=== PATIENT | female | born 1940 | race Caucasian/White ===

== ENCOUNTER 2016-08-21 22:04 | Emergency (ER) | payer OTHER ==
--- NOTE | 2016-08-21 23:07 | DIAGNOSTIC IMAGING REPORT ---
PROCEDURE: XR CHEST 1 VIEW INDICATION: SHORTNESS OF BREATH TECHNIQUE: Portable AP view (2225 hours). COMPARISON: Compared to chest x-ray and 03/22/2016. FINDINGS: Allowing for suboptimal inspiration and rotation, there are moderate to severe parenchymal changes in the mid and lower lungs. Moderate cardiomegaly with pulmonary vascular congestion. Thorax is unchanged. IMPRESSION: 1. Moderate to severe parenchymal changes in the mid and lower lungs compatible with pneumonia (e.g., aspiration, bacterial,). 2. Moderate cardiomegaly with mild pulmonary vascular congestion. Consider occult congestive heart failure.
--- NOTE | 2016-08-22 07:19 | ED ORDER SUMMARY ---
..... Patient: BARBRA ESCOBAR OrderSheet [facility] VisitID: [id number] [place] [address] 76y, F Registration Date/Time: 08/21/2016 ORDER SHEET Weight: 136.0 kg Allergies: Morphine and Related GENERAL ORDERS: Chest 1V Urgent (22:10 08/21/2016 Nara Hoffmann) (Ack 22:20 IJurca ER Tech1) (22:25 IJurca ER Tech1) CBC w Diff Urgent (22:11 08/21/2016 Nara Hoffmann) (Ack 22:20 IJurca ER Tech1) (22:24 MWinterer R.N.) CMP Urgent (22:11 08/21/2016 Nara Hoffmann) (Ack 22:20 IJurca ER Tech1) (22:24 MWinterer R.N.) UA-Culture if indicated Urgent (22:11 08/21/2016 Nara Hoffmann) (Ack 22:20 IJurca ER Tech1) (23:37 JRomanelli R.N.) BNP Urgent (22:11 08/21/2016 Nara Hoffmann) (Ack 22:20 IJurca ER Tech1) (22:24 MWinterer R.N.) D-Dimer Urgent (22:11 08/21/2016 Nara Hoffmann) (Ack 22:20 IJurca ER Tech1) (22:24 MWinterer R.N.) EKG - ER Stat (22:11 08/21/2016 Nara Hoffmann) (22:17 TBowen R.N.) Nolen Catheter (23:23 08/21/2016 Nara Hoffmann) (Ack 23:32 IJurca ER Tech1) (23:38 TBowen R.N.) ABG (G) Urgent (23:29 08/21/2016 Nara Hoffmann) (Ack 23:31 IJurca ER Tech1) (0:08 TBowen R.N.) Blood Culture (No) (N/A) Urgent (00:01 08/22/2016 Nara Hoffmann) (Ack 0:08 IJurca ER Tech1) (0:38 TBowen R.N.) Lactic Acid for Sepsis Protocol Urgent (00:01 08/22/2016 Nara Hoffmann) (Ack 0:08 IJurca ER Tech1) (0:39 TBowen R.N.) PCT (Procalcitonin) Urgent (00:01 08/22/2016 Nara Hoffmann) (Ack 0:08 IJurca ER Tech1) (0:39 TBowen R.N.) ABG (G) Urgent (03:01 08/22/2016 Nara Hoffmann) (Ack 3:03 IJurca ER Tech1) ABG (G) Urgent (07:11 08/22/2016 Nara Hoffmann) (Ack 7:28 YOLANDEoejoey) MEDICATION ORDERS: Prednisone PO 40 mg (NOW) (22:11 08/21/2016 Nara Hoffmann) (22:28 TBowen R.N.) NitroGLYCERIN Paste Topical 1 in. (NOW, to CW) (23:23 08/21/2016 Nara Hoffmann) (23:43 TBowen R.N.) Lovenox Subcut 150 mg (HIGH ALERT MEDICATION, NOW) (00:08 08/22/2016 Nara Hoffmann) (0:26 TBowen R.N.) IV FLUIDS: Lasix IV 40 mg (NOW) (23:23 08/21/2016 Nara Hoffmann) (0:06 TBowen R.N.) Levaquin IV 750 mg/150 mL (NOW) (00:04 08/22/2016 Nara Hoffmann) (1:09 TBowen R.N.) Ceftriaxone IV 1 gm/50mL (NOW) (00:04 08/22/2016 Nara Hoffmann) (0:37 TBowen R.N.) ORDER SHEET NOTES: [Electronically signed by Daniella Damon R.N. (09:04 08/22/2016)] [Electronically signed by Cj Cole Dr. (08:46 08/24/2016)] [Electronically locked/signed by Daniella Damon R.N. (09:04 08/22/2016)]
--- NOTE | 2016-08-22 07:19 | ED CLINICAL REPORT ---
Clinical Report - Physicians/Mid Levels [facility] [address] [place] [address] 08/21/2016 22:05 Patient: BARBRA ESCOBAR Time Seen: 22:10; initial patient contact. Arrived- By ambulance. Historian- patient and EMS personnel. HISTORY OF PRESENT ILLNESS Chief Complaint: DYSPNEA and HISTORY OF CHRONIC OBSTRUCTIVE PULMONARY DISEASE and CONGESTIVE HEART FAILURE. This started today and is still present. The dyspnea is described as moderate. The patient has had a cough, chest discomfort, wheezing, dyspnea on exertion and foot swelling. She has had orthopnea. No sputum production, fever, sweating episodes, chills or chest pain. No calf pain, anxiety or palpitations. Similar symptoms previously: Several times. Recent medical care: Not recently seen/assessed. REVIEW OF SYSTEMS No nausea, vomiting, abdominal pain, headache or skin rash. All systems otherwise negative, except as recorded above. PAST HISTORY Congestive heart failure. Emphysema. A fib. No history of pulmonary embolism. Medications: Metoprolol Tartrate Oral 25 mg. Atorvastatin Calcium Oral 40 mg, daily. Aspirin Oral. Allopurinol Oral 300 mg, daily. Furosemide Oral 40 mg, daily. Isosorbide Dinitrate Oral (Tablet 30 mg), bid. Levothyroxine Sodium Oral (Tablet 50 mcg), daily. Oxycodone-Acetaminophen Oral (Tablet 7.5-325 mg) 2 tablets, 2x a day. Pantoprazole Sodium Oral 40 mg, daily. Allergies: Morphine and Related. SOCIAL HISTORY Former smoker. No alcohol use or drug use. ADDITIONAL NOTES The nursing notes have been reviewed with agreement regarding the chief complaint, PMH and patient medications and allergies. PHYSICAL EXAM Appearance: Alert. Patient in mild distress. Eyes: Eyes normal inspection. ENT: Dry mucous membranes present. Neck: JVD present. CVS: Normal heart rate and rhythm. Heart sounds normal. Respiratory: Moderate respiratory distress with accessory muscle use and retractions. Mildly prolonged expirations. Moderately decreased air movement diffusely over both lungs. Wheezing present. Rhonchi present. Abdomen: Soft and nontender. No organomegaly. Skin: No rash. Extremities: Lower extremity edema. Neuro: Oriented X 3. No motor deficit. LABS, X-RAYS, AND EKG EKG: EKG time: (2218). Atrial fibrillation (ventricular rate 73). Normal QRS complex. Normal axis. Normal ST and T waves, QT and QTc. Prior EKG unavailable. The study has been interpreted contemporaneously by me. The study has been independently viewed by me. The EKG appears to be a good tracing. Interpretation time: 2219. Chest X-ray: (1. Moderate to severe parenchymal changes in the mid and lower lungs compatible with pneumonia (e.g., aspiration, bacterial,). 2. Moderate cardiomegaly with mild pulmonary vascular congestion. Consider occult congestive heart failure.). Views: AP. Technique: good. The X-rays were independently viewed by me, interpreted by the radiologist and discussed with the radiologist. A comparison with prior films reveals that the findings have worsened. Interpretation time: 23:31. Laboratory Tests: [id number]: (SAURAV: 08/22/2016 00:30) ( [facility] 08/22/2016 01:02) Final results Test Result Flag Units (Reference) LACTIC ACID SEPSIS PROTOCOL 1.0 mmol/L (0.4-2.0) [id number]: (SAURAV: 08/22/2016 00:01) ( [facility] 08/22/2016 00:36) Final results Test Result Flag Units (Reference) PROCALCITONIN <0.5 ng/mL (0-0.5) PCT Concentration: Interpretation : Risk/option for action PCT <=0.5 ng/mL : Systemic : Low risk forinfection(sepsis): progression to severeis not likely. : systemic infection.Local bacterial : CAUTION-PCT levelsinfection is : below 0.5 ng/mL do notpossible. : exclude an infection,because localizedinfections (withoutsystemic signs) may beassociated with suchlow levels. If PCT ismeasured very earlyafter a bacterialchallenge (usually <6hours), these valuesmay still be low. Inthis case PCT shouldbe re-assessed 6-24hours later. PCT >0.5 and : Systemic infection: Moderate risk for<= 2 ng/mL : (sepsis) is : progression to severepossible, but : systemic infection.other conditions : The patient should beare known to : closely monitoredelevate PCT. : both clinically andby re-assessing PCTwithin 6-24 hours. PCT > 2 ng/mL : Systemic infection: High risk for(sepsis) is likely: progression to severeunless other : systemic infection.causes are known. : PCT >= 10 ng/mL : Important systemic: High likelihood ofinflammatory : severe sepsis orresponse, almost : septic shock.exclusively due to:severe bacterial :sepsis or septic :shock. : ABG: (SAURAV: 08/22/2016 03:01) ( [facility] 08/22/2016 03:43) Final results Test Result Flag Units (Reference) FIO2 40 % (20-101) ABG MODE OF DELIVERY NC MODIFIED LINN TEST POSITIVE? NO LITERS PER MIN. 5 L/MIN (0-20) ARTERIAL BLOOD GAS SITE LR ARTERIAL BLOOD GAS pH 7.21 *L (7.35-7.45) ABG PCO2 114.0 *H mmHg (35-45) ABG PO2 71.4 mmHg (60.0-80.0) ABG BASE EXCESS 15.1 *H mmol/L (-6.0--6.0) ABG HCO3 45.2 *H mmol/L (20.0-26.0) ABG TCO2 48.7 *H mmol/L (24.0-30.0) ABG XrKlA1j 88.3 H mmHg (7.0-14.0) *NOTE: Normal rangeis based on aFIO2 of 21% ABG SAT O2 93.2 L % (95.1-100.0) ABG TOTAL HEMOGLOBIN 12.3 g/dL (12.0-16.0) ABG O2 HEMOGLOBIN 90.7 L % (95.0-100.0) ABG CARBOXYHEMOGLOBIN 2.8 H % (0.5-1.5) ABG METHEMOGLOBIN -0.1 L % (0.4-1.5) ABG RHEMOGLOBIN 6.6 % COMMENTS 5LNC UA-Culture if indicated: (SAURAV: 08/21/2016 23:30) ( MsgRcvd 08/21/2016 23:56) Final results Test Result Flag Units (Reference) URINE COLOR YELLOW URINE APPEARANCE CLEAR URINE GLUCOSE NEGATIVE (NEGATIVE) URINE BILIRUBIN NEGATIVE (NEGATIVE) URINE KETONE NEGATIVE (NEGATIVE) URINE SPECIFIC GRAVITY 1.020 (1.010-1.030) URINE PH 6.0 (5.0-8.0) URINE PROTEIN TRACE (NEGATIVE) URINE UROBILINOGEN 1.0 EU/dL (0.2-1.0) URINE NITRITE POSITIVE (NEGATIVE) URINE BLOOD TRACE-INTACT (NEGATIVE) URINE LEUK ESTERASE TRACE (NEGATIVE) URINE RBC 0-1 rbc/hpf (0-1) URINE WBC 3-5 wbc/hpf (0-1) URINE EPITHELIAL CELLS 0-1 EPI/hpf (0-5) URINE BACTERIA MODERATE (2+ TO 3+) (NONE SEEN) URINE COMMENT CULTURE INDICATED URINE CULTURES ARE SET-UP BASED ON THE FOLLOWING CRITERIA:POSITIVE NITRITEPOSITIVE LEUKOCYTE ESTERASEGREATER THAN 10 WHITE BLOOD CELLSMODERATE (2+) OR GREATER BACTERIA CBC w Diff: (SAURAV: 08/21/2016 22:20) ( [facility] 08/21/2016 22:33) Final results Test Result Flag Units (Reference) WHITE BLOOD COUNT 10.1 K/uL (4.5-11.5) RED BLOOD COUNT 4.52 M/uL (4.00-5.20) HEMOGLOBIN 12.4 gm/dL (12.0-16.0) HEMATOCRIT 40.7 % (36.0-46.0) MEAN CELL VOLUME 90 fL (80-100) MEAN CORPUSCULAR HGB 27 pg (26-34) MEAN CORPUSCULAR HGB CONC 30 L g/dL (31-37) RED CELL DISTRIBUTION WIDTH 18.3 H % (11.6-14.8) PLATELET COUNT 190 K/uL (150-400) NEUTROPHIL % 79.0 H % (50-75) LYMPH % 14.7 L % (25-40) MONO % 5.5 % (3-14) EOSINOPHIL % 0.5 % (0-4) BASOPHIL % 0.3 % (0-2) [id number]: (SAURAV: 08/21/2016 22:20) ( [facility] 08/21/2016 22:46) Final results Test Result Flag Units (Reference) D-DIMER QUANTITATIVE 1.85 H ug/mLFEU (0.27-0.52) The primary value of this quantitative assay relates toits negative predictive value (i.e. exclusion) of pulmonaryembolism/deep vein thrombosis/DIC.Elevated levels of d-dimer may also occur with:, age, cancer, inflammation, liver disease,post-op, infection, hematoma, coronary disease, peripheralarteriopathy, bleeding disorders and thrombolytic treatment.Results should be correlated with other clinical andradiological data.Testing Methodology: Latex Immunoassay BNP: (SAURAV: 08/21/2016 22:20) ( [facility] 08/21/2016 22:59) Final results Test Result Flag Units (Reference) B-TYPE NATRIURETIC PEPTIDE 502 H pg/ml (5-100) CMP: (SAURAV: 08/21/2016 22:20) ( MsgRcvd 08/21/2016 22:59) Final results Test Result Flag Units (Reference) GLUCOSE 119 H mg/dL (70-110) BUN 30 H mg/dL (7-18) CREATININE 1.4 H mg/dL (0.6-1.3) Estimated GFR 38.86 mL/min Estimated GFR- 47.10 mL/min Note: Persistent reduction over 3 months in eGFR<60 mL/min/1.73 m2 defines CKD. Patients with eGFR values>=60 mL/min/1.73 m2 may also have CKD if evidence ofpersistent proteinuria. Additional information may be foundat www.kidney.org. SODIUM 145 mmol/L (136-145) POTASSIUM 4.3 mmol/L (3.5-5.1) CHLORIDE 102 mmol/L (98-107) CARBON DIOXIDE 45 *H mmol/L (21-32) CALCIUM 8.4 L mg/dL (8.5-10.1) TOTAL PROTEIN 7.3 g/dL (6.4-8.2) ALBUMIN 3.2 L g/dL (3.3-5.0) BILIRUBIN, TOTAL 1.1 H mg/dL (0.0-1.0) ALKALINE PHOSPHATASE 101 U/L (46-116) AST (SGOT) 22 U/L (15-37) ALT (SGPT) 26 U/L (12-78) ABG: (SAURAV: 08/21/2016 23:29) ( MsgRcvd 08/21/2016 23:52) Final results Test Result Flag Units (Reference) FIO2 40 % (20-101) ABG MODE OF DELIVERY NC MODIFIED LINN TEST POSITIVE? NO LITERS PER MIN. 5 L/MIN (0-20) ARTERIAL BLOOD GAS SITE LR ARTERIAL BLOOD GAS pH 7.24 *L (7.35-7.45) ABG PCO2 106.0 *H mmHg (35-45) ABG PO2 64.0 mmHg (60.0-80.0) ABG BASE EXCESS 15.2 *H mmol/L (-6.0--6.0) ABG HCO3 44.9 *H mmol/L (20.0-26.0) ABG TCO2 48.2 *H mmol/L (24.0-30.0) ABG WzGfV4j 104.7 H mmHg (7.0-14.0) *NOTE: Normal rangeis based on aFIO2 of 21% ABG SAT O2 89.9 L % (95.1-100.0) ABG TOTAL HEMOGLOBIN 12.4 g/dL (12.0-16.0) ABG O2 HEMOGLOBIN 87.7 L % (95.0-100.0) ABG CARBOXYHEMOGLOBIN 2.7 H % (0.5-1.5) ABG METHEMOGLOBIN -0.2 L % (0.4-1.5) ABG RHEMOGLOBIN 9.8 % COMMENTS 4LNC . PROGRESS AND PROCEDURES PROCEDURES (ABG L radial artery). Critical care performed (120 minutes). Time includes: direct patient care, patient reassessment, coordination of patient care, interpretation of data (laboratory data, pulse oximetry, arterial blood gases and chest xrays), review of patient's medical records, medical consultation, family consultation regarding treatment decisions and documentation of patient care. The patient required critical care due to the acute impairment of vital organ systems (respiratory) and a high probability of life threatening deterioration. Multiple emergent interventions were required to prevent life threatening deterioration. Discussed case with on-call health care provider, (call returned 03:16 Dr. Brewer Change Room Attendant at [facility] and recommended ER to ER transfer and will dispo her there. Spoke w/ ED MD, due to pCO2 being so high, she needs an ICU bed and they now no longer have one available.). Reviewed test results and need for additional work-up. Health care provider will see patient in ED. Discussed case with on-call health care provider, (call returned 04:45 Dr. Hendricks Change Room Attendant at [facility]. Due to ABG he would not accept pt unless she was intubated for transfer as immenent deterioration would likely occur..). Reviewed test results and need for additional work-up. Consult obtained from [employer] sales consultant. call returned 07:41 Dr. Barnes. Will accept pt. Disposition: Benefits, risks and alternatives to transfer explained to patient and family. Transferred to [facility]. CLINICAL IMPRESSION Bacterial and lobar pneumonia with hypoxemia. Empiric antibiotics given in the ED. Acute congestive heart failure. Acute exacerbation of COPD. Acute urinary tract infection with cystitis. Hypoxia. (Electronically signed by Cj Cole Dr. 08/24/2016 8:46) Addenda for BARBRA ESCOBAR VisitID: [id number] Date: 08/21/2016 08/23/2016 14:42 preliminary result received for urine positive for gram negative rods. Reviewed by Ton Salazar PA-C. Results called to RENETTA Drummond at [facility] radha ([address] [place] [address], critical care). Results also faxed to unit (Electronically signed by Brock Shin R.N. - 08/23/2016 14:42)
--- NOTE | 2016-08-22 07:19 | ED NURSING NOTES ---
Clinical Report - Nurses [facility] [address] [place] [address] 08/21/2016 22:05 Patient: BARBRA ESCOBAR TRIAGE Triage time 22:13. Acuity: LEVEL 3. Chief Complaint: SHORTNESS OF BREATH. Alert. No acute distress. --22:16 TonjaysonB, R.N. 22:13 08/21/16. BP: 117/77. HR: 66. RR: 20. O2 saturation: 98%. Temp: 98.9 F. Pain level now: 0/10. --22:16 TonjaysonB, R.N. Weight: 136 kg. Height/Length: 68 inches. BMI: 45.6. --22:16 TonyaB, R.N. Medications Allopurinol Oral 300 mg, daily. Furosemide Oral 40 mg, daily. Isosorbide Dinitrate Oral (Tablet 30 mg), bid. Levothyroxine Sodium Oral (Tablet 50 mcg), daily. Oxycodone-Acetaminophen Oral (Tablet 7.5-325 mg) 2 tablets, 2x a day. Pantoprazole Sodium Oral 40 mg, daily. --22:34 TonjaysonB, R.N. Aspirin Oral. --22:35 TonyaB, R.N. Atorvastatin Calcium Oral 40 mg, daily. --22:35 TonjaysonB, R.N. Metoprolol Tartrate Oral 25 mg. --22:36 TonjaysonB, R.N. Allergies Morphine and Related. --22:14 TonjaysonB, R.N. History Arrived by EMS. Historian: patient and family. Accompanied by family. This started today. She has had a cough and chest pain. Treatment PIN SORTER AND BAGGER: Took breathing treatment x1. (zofran). See EMS report. PAST MEDICAL HX: Hypertension. Congestive heart failure. Chronic obstructive pulmonary disease. Immunizations: up-to-date. SOCIAL HX: Former smoker. No alcohol use or drug use. No infectious disease exposure. FALL RISK ASSESSMENT: Fall risk assessment completed. No fall risk identified. NUTRITIONAL RISK ASSESSMENT: The nutritional risk assessment revealed no deficiencies. FUNCTIONAL ASSESSMENT: Functional assessment: no impairments noted. LEARNING NEEDS ASSESSMENT: The learning needs assessment revealed no barriers. SKIN INTEGRITY ASSESSMENT: Skin integrity risk assessment completed. No skin integrity risk identified. --22:16 Quinten Mcfarland Interventions ID band on patient. To treatment room. --22:16 Quinten Mcfarland PHYSICAL ASSESSMENT To room via stretcher. GENERAL / NEURO / PSYCH: Alert. Oriented X 4. Appears in no acute distress. RESPIRATORY: No respiratory distress. Respirations not labored. Chest nontender. CVS: Normal sinus rhythm noted. Capillary refill less than 2 seconds. GI / : Abdomen soft and nontender. Bowel sounds within normal limits. SKIN: Skin is warm and dry. Normal skin turgor. --22:17 Quinten Mcfarland NURSING PROGRESS NOTES Oxygen administered. Monitoring of patient in place. Patient gowned. Head of bed elevated. Two patient identifiers checked. Call light placed in reach. Side rails up x 2. Bed placed in lowest position. Brakes of bed on. --22:19 Quinten Mcfarland EKG time: (2218). EKG was ordered, performed by a tech and shown to the ED physician. --22:21 Louis Welsh, VALERIA Tech1 22:23 08/21/16. Checked patient name and birthdate: patient confirmed. Blood samples drawn from the right antecubital space with butterfly by nurse per protocol ; labeled in presence of the patient and sent to lab: rainbow set. --22:23 Hannah Vaughn R.N. 22:28 08/21/2016 Prednisone PO 40 mg given. Allergies verified and confirmed 5 rights. --22:28 Quinten Mcfarland 23:40 08/21/2016 Site #1 started prior to arrival by EMS via IV in the left antecubital space with an 20g angiocath. --00:06 Quinten Mcfarland 23:43 08/21/2016 NITROGLYCERIN PASTE Topical 1 inch. Applied to the left chest. Allergies verified and confirmed 5 rights. --23:43 Quinten Mcfarland 00:06 08/22/2016 Lasix IVP 40 mg given over 3 minute(s) via site #1. Allergies verified and confirmed 5 rights. IV patency established. IV site checked: no pain, redness, or swelling. IV flushed thoroughly pre- and post-medication administration. IVP given by physician. --00:06 Quinten Mcfarland 14 fr franklin catheter placed. Reason for indwelling catheter: critical need to monitor intake and output. During procedure hand hygiene observed and sterile equipment and aseptic technique used. Return of 100 mL yellow-colored urine, sediment noted; attached to bedside drainage bag positioned below the bladder and secured with stabilization device. It was a complicated placement. She tolerated procedure well. --00:08 Bonny McfarlandNMarga 00:26 08/22/2016 Lovenox (Enoxaparin Sodium) Subcutaneous 150 mg given. Given in the right abdomen. Allergies verified and confirmed 5 rights. --00:26 Quinten Mcfarland 00:37 08/22/2016 Started 1 gm of Ceftriaxone IVPB in bag #1 100 mL; at 1 gm/hr over 30 minute(s) via site #1 via IV pump. Allergies verified and confirmed 5 rights. IV patency established. IV site checked: no pain, redness, or swelling. IV flushed thoroughly pre- and post-medication administration. --00:37 Quinten Mcfarland 01:07 08/22/2016 Ceftriaxone IVPB Discontinued: bag #1 completed. Total amount infused: 100 mL. IV patency established. IV site checked: no pain, redness, or swelling. IV flushed thoroughly. --01:07 Quinten Mcfarland 01:08 08/22/2016 Started 750 mg of Levaquin (Levofloxacin) IVPB; at 750 mg/hr over 1.5 hour(s) via site #1 via IV pump. Allergies verified and confirmed 5 rights. IV patency established. IV site checked: no pain, redness, or swelling. IV flushed thoroughly pre- and post-medication administration. --01:09 Quinten Mcfarland The patient is sleeping. --02:11 Quinten Mcfarland 02:10 08/22/16. BP: 143/52. HR: 67. RR: 20. O2 saturation: 91%. Temp: 98.4 F. Pain level now 0/10. --02:11 Quinten Mcfarland 02:34 08/22/2016 Levaquin IVPB Discontinued: bag #1 completed. Total amount infused: 150 mL. IV patency established. IV site checked: no pain, redness, or swelling. IV flushed thoroughly. --02:34 Quinten Mcfarland The patient is sleeping. Call light placed in reach. Side rails up x 2. Bed placed in lowest position. Brakes of bed on. --04:04 Quinten Mcfarland 04:03 08/22/16. BP: 131/58. HR: 88. RR: 18. O2 saturation: 91%. Temp: deferred. Pain level now: 0/10. --04:04 Quinten Mcfarland The patient is sleeping. --06:13 Quinten Mcfarland 06:13 08/22/16. BP: 116/62. HR: 72. RR: 22. O2 saturation: 94%. Temp: deferred. Pain level now: 0/10. --06:13 Quinten Mcfarland 07:21 08/22/16. ( Patient report received from Shana. So in law is at the bedside. Patient is sleeping. Bi-pap is in place. Will cont to monitor.). --07:21 Daniella Damon R.N. 07:00 08/22/16. BP: 119/67. HR: 71. RR: 20. O2 saturation: 91% on face mask. O2 started at 10 liters/minute. Additional comments: bi-pap. --07:26 Daniella Damon R.N. 07:35 08/22/16. ( Patient boosted up in bed using chucks and 2 nurses. RT drawing ABG. Pt's son in law is still at bedside. Will cont to monitor.). --07:37 Daniella Damon R.N. ( face sheet faxed to Prov. Images pushed to Prov.). --07:56 Betsey Martin ER Tech1 08:00 08/22/16. BP: 142/106. HR: 68. RR: 14. O2 saturation: 95%. O2 started via face mask. Additional comments: Bi-pap. --08:21 Daniella Damon R.N. 08:30 08/22/16. ( Report called to RENETTA Smith at [facility] ICU). --08:30 Daniella Damon R.N. 08:36 08/22/16. ( Family and patient updates on POC and transport ETA.). --08:36 Daniella Damon R.N. 09:00 08/22/16. Care transferred and report given. ( Colin With [facility]). --09:00 Daniella Damon R.N. Intake & Output Urine: 07:53, with return of 550 mL yellow-colored clear urine; odor is normal; attached to bedside drainage bag. --07:53 Daniella Damon R.N. DISPOSITION / DISCHARGE 08:53 08/22/2016 Site #[address] upon transfer; patent, no pain and no signs of infection. --09:03 Daniella Damon R.N. late entry - 08:50. Transferred to [facility]. Summary of care provided to transport team, EMS, family and transfer facility. Transported via ambulance by nurse with monitor, IV and O2. ( on Bi-pap). Patient has no belongings. --09:04 Danilela Damon R.N. 08:00 08/22/16. BP: 142/106. HR: 68. RR: 14. O2 saturation: 95%. O2 started via face mask. Additional comments: Bi-pap. --09:04 Daniella Damon R.N. Locked/Released at 08/22/2016 9:04 by Daniella Damon R.N.
--- NOTE | 2016-08-22 07:19 | ED ORDER SUMMARY ---
..... Patient: BARBRA ESCOBAR OrderSheet [facility] VisitID: [id number] [place] [address] 76y, F Registration Date/Time: 08/21/2016 ORDER SHEET Weight: 136.0 kg Allergies: Morphine and Related GENERAL ORDERS: Chest 1V Urgent (22:10 08/21/2016 Nara Hoffmann) (Ack 22:20 IJurca ER Tech1) (22:25 IJurca ER Tech1) CBC w Diff Urgent (22:11 08/21/2016 Nara Hoffmann) (Ack 22:20 IJurca ER Tech1) (22:24 MWinterer R.N.) CMP Urgent (22:11 08/21/2016 Nara Hoffmann) (Ack 22:20 IJurca ER Tech1) (22:24 MWinterer R.N.) UA-Culture if indicated Urgent (22:11 08/21/2016 Nara Hoffmann) (Ack 22:20 IJurca ER Tech1) (23:37 JRomanelli R.N.) BNP Urgent (22:11 08/21/2016 Nara Hoffmann) (Ack 22:20 IJurca ER Tech1) (22:24 MWinterer R.N.) D-Dimer Urgent (22:11 08/21/2016 Nara Hoffmann) (Ack 22:20 IJurca ER Tech1) (22:24 MWinterer R.N.) EKG - ER Stat (22:11 08/21/2016 Nara Hoffmann) (22:17 TBowen R.N.) Nolen Catheter (23:23 08/21/2016 Nara Hoffmann) (Ack 23:32 IJurca ER Tech1) (23:38 TBowen R.N.) ABG (G) Urgent (23:29 08/21/2016 Nara Hoffmann) (Ack 23:31 IJurca ER Tech1) (0:08 TBowen R.N.) Blood Culture (No) (N/A) Urgent (00:01 08/22/2016 Nara Hoffmann) (Ack 0:08 IJurca ER Tech1) (0:38 TBowen R.N.) Lactic Acid for Sepsis Protocol Urgent (00:01 08/22/2016 Nara Hoffmann) (Ack 0:08 IJurca ER Tech1) (0:39 TBowen R.N.) PCT (Procalcitonin) Urgent (00:01 08/22/2016 Nara Hoffmann) (Ack 0:08 IJurca ER Tech1) (0:39 TBowen R.N.) ABG (G) Urgent (03:01 08/22/2016 Nara Hoffmann) (Ack 3:03 IJurca ER Tech1) ABG (G) Urgent (07:11 08/22/2016 Nara Hoffmann) (Ack 7:28 YOLANDEoejoey) MEDICATION ORDERS: Prednisone PO 40 mg (NOW) (22:11 08/21/2016 Nraa Hoffmann) (22:28 TBowen R.N.) NitroGLYCERIN Paste Topical 1 in. (NOW, to CW) (23:23 08/21/2016 Nara Hoffmann) (23:43 TBowen R.N.) Lovenox Subcut 150 mg (HIGH ALERT MEDICATION, NOW) (00:08 08/22/2016 Nara Hoffmann) (0:26 TBowen R.N.) IV FLUIDS: Lasix IV 40 mg (NOW) (23:23 08/21/2016 Nara Hoffmann) (0:06 TBowen R.N.) Levaquin IV 750 mg/150 mL (NOW) (00:04 08/22/2016 Nara Hoffmann) (1:09 TBowen R.N.) Ceftriaxone IV 1 gm/50mL (NOW) (00:04 08/22/2016 Nara Hoffmann) (0:37 TBowen R.N.) ORDER SHEET NOTES: [Electronically signed by Daniella Damon R.N. (09:04 08/22/2016)] [Electronically signed by Cj Cole Dr. (08:46 08/24/2016)] [Electronically locked/signed by Daniella Damon R.N. (09:04 08/22/2016)]
--- NOTE | 2016-08-22 07:19 | ED CLINICAL REPORT ---
Clinical Report - Physicians/Mid Levels [address] [place] [address] 08/21/2016 22:05 Patient: BARBRA ESCOBAR Time Seen: 22:10; initial patient contact. Arrived- By ambulance. Historian- patient and EMS personnel. HISTORY OF PRESENT ILLNESS Chief Complaint: DYSPNEA and HISTORY OF CHRONIC OBSTRUCTIVE PULMONARY DISEASE and CONGESTIVE HEART FAILURE. This started today and is still present. The dyspnea is described as moderate. The patient has had a cough, chest discomfort, wheezing, dyspnea on exertion and foot swelling. She has had orthopnea. No sputum production, fever, sweating episodes, chills or chest pain. No calf pain, anxiety or palpitations. Similar symptoms previously: Several times. Recent medical care: Not recently seen/assessed. REVIEW OF SYSTEMS No nausea, vomiting, abdominal pain, headache or skin rash. All systems otherwise negative, except as recorded above. PAST HISTORY Congestive heart failure. Emphysema. A fib. No history of pulmonary embolism. Medications: Metoprolol Tartrate Oral 25 mg. Atorvastatin Calcium Oral 40 mg, daily. Aspirin Oral. Allopurinol Oral 300 mg, daily. Furosemide Oral 40 mg, daily. Isosorbide Dinitrate Oral (Tablet 30 mg), bid. Levothyroxine Sodium Oral (Tablet 50 mcg), daily. Oxycodone-Acetaminophen Oral (Tablet 7.5-325 mg) 2 tablets, 2x a day. Pantoprazole Sodium Oral 40 mg, daily. Allergies: Morphine and Related. SOCIAL HISTORY Former smoker. No alcohol use or drug use. ADDITIONAL NOTES The nursing notes have been reviewed with agreement regarding the chief complaint, PMH and patient medications and allergies. PHYSICAL EXAM Appearance: Alert. Patient in mild distress. Eyes: Eyes normal inspection. ENT: Dry mucous membranes present. Neck: JVD present. CVS: Normal heart rate and rhythm. Heart sounds normal. Respiratory: Moderate respiratory distress with accessory muscle use and retractions. Mildly prolonged expirations. Moderately decreased air movement diffusely over both lungs. Wheezing present. Rhonchi present. Abdomen: Soft and nontender. No organomegaly. Skin: No rash. Extremities: Lower extremity edema. Neuro: Oriented X 3. No motor deficit. LABS, X-RAYS, AND EKG EKG: EKG time: (2218). Atrial fibrillation (ventricular rate 73). Normal QRS complex. Normal axis. Normal ST and T waves, QT and QTc. Prior EKG unavailable. The study has been interpreted contemporaneously by me. The study has been independently viewed by me. The EKG appears to be a good tracing. Interpretation time: 2219. Chest X-ray: (1. Moderate to severe parenchymal changes in the mid and lower lungs compatible with pneumonia (e.g., aspiration, bacterial,). 2. Moderate cardiomegaly with mild pulmonary vascular congestion. Consider occult congestive heart failure.). Views: AP. Technique: good. The X-rays were independently viewed by me, interpreted by the radiologist and discussed with the radiologist. A comparison with prior films reveals that the findings have worsened. Interpretation time: 23:31. Laboratory Tests: [id number]: (SAURAV: 08/22/2016 00:30) ( [facility] 08/22/2016 01:02) Final results Test Result Flag Units (Reference) LACTIC ACID SEPSIS PROTOCOL 1.0 mmol/L (0.4-2.0) [id number]: (SAURAV: 08/22/2016 00:01) ( [facility] 08/22/2016 00:36) Final results Test Result Flag Units (Reference) PROCALCITONIN <0.5 ng/mL (0-0.5) PCT Concentration: Interpretation : Risk/option for action PCT <=0.5 ng/mL : Systemic : Low risk forinfection(sepsis): progression to severeis not likely. : systemic infection.Local bacterial : CAUTION-PCT levelsinfection is : below 0.5 ng/mL do notpossible. : exclude an infection,because localizedinfections (withoutsystemic signs) may beassociated with suchlow levels. If PCT ismeasured very earlyafter a bacterialchallenge (usually <6hours), these valuesmay still be low. Inthis case PCT shouldbe re-assessed 6-24hours later. PCT >0.5 and : Systemic infection: Moderate risk for<= 2 ng/mL : (sepsis) is : progression to severepossible, but : systemic infection.other conditions : The patient should beare known to : closely monitoredelevate PCT. : both clinically andby re-assessing PCTwithin 6-24 hours. PCT > 2 ng/mL : Systemic infection: High risk for(sepsis) is likely: progression to severeunless other : systemic infection.causes are known. : PCT >= 10 ng/mL : Important systemic: High likelihood ofinflammatory : severe sepsis orresponse, almost : septic shock.exclusively due to:severe bacterial :sepsis or septic :shock. : ABG: (SAURAV: 08/22/2016 03:01) ( MsgRcvd 08/22/2016 03:43) Final results Test Result Flag Units (Reference) FIO2 40 % (20-101) ABG MODE OF DELIVERY NC MODIFIED LINN TEST POSITIVE? NO LITERS PER MIN. 5 L/MIN (0-20) ARTERIAL BLOOD GAS SITE LR ARTERIAL BLOOD GAS pH 7.21 *L (7.35-7.45) ABG PCO2 114.0 *H mmHg (35-45) ABG PO2 71.4 mmHg (60.0-80.0) ABG BASE EXCESS 15.1 *H mmol/L (-6.0--6.0) ABG HCO3 45.2 *H mmol/L (20.0-26.0) ABG TCO2 48.7 *H mmol/L (24.0-30.0) ABG BrWvQ7d 88.3 H mmHg (7.0-14.0) *NOTE: Normal rangeis based on aFIO2 of 21% ABG SAT O2 93.2 L % (95.1-100.0) ABG TOTAL HEMOGLOBIN 12.3 g/dL (12.0-16.0) ABG O2 HEMOGLOBIN 90.7 L % (95.0-100.0) ABG CARBOXYHEMOGLOBIN 2.8 H % (0.5-1.5) ABG METHEMOGLOBIN -0.1 L % (0.4-1.5) ABG RHEMOGLOBIN 6.6 % COMMENTS 5LNC UA-Culture if indicated: (SAURAV: 08/21/2016 23:30) ( MsgRcvd 08/21/2016 23:56) Final results Test Result Flag Units (Reference) URINE COLOR YELLOW URINE APPEARANCE CLEAR URINE GLUCOSE NEGATIVE (NEGATIVE) URINE BILIRUBIN NEGATIVE (NEGATIVE) URINE KETONE NEGATIVE (NEGATIVE) URINE SPECIFIC GRAVITY 1.020 (1.010-1.030) URINE PH 6.0 (5.0-8.0) URINE PROTEIN TRACE (NEGATIVE) URINE UROBILINOGEN 1.0 EU/dL (0.2-1.0) URINE NITRITE POSITIVE (NEGATIVE) URINE BLOOD TRACE-INTACT (NEGATIVE) URINE LEUK ESTERASE TRACE (NEGATIVE) URINE RBC 0-1 rbc/hpf (0-1) URINE WBC 3-5 wbc/hpf (0-1) URINE EPITHELIAL CELLS 0-1 EPI/hpf (0-5) URINE BACTERIA MODERATE (2+ TO 3+) (NONE SEEN) URINE COMMENT CULTURE INDICATED URINE CULTURES ARE SET-UP BASED ON THE FOLLOWING CRITERIA:POSITIVE NITRITEPOSITIVE LEUKOCYTE ESTERASEGREATER THAN 10 WHITE BLOOD CELLSMODERATE (2+) OR GREATER BACTERIA CBC w Diff: (SAURAV: 08/21/2016 22:20) ( [facility] 08/21/2016 22:33) Final results Test Result Flag Units (Reference) WHITE BLOOD COUNT 10.1 K/uL (4.5-11.5) RED BLOOD COUNT 4.52 M/uL (4.00-5.20) HEMOGLOBIN 12.4 gm/dL (12.0-16.0) HEMATOCRIT 40.7 % (36.0-46.0) MEAN CELL VOLUME 90 fL (80-100) MEAN CORPUSCULAR HGB 27 pg (26-34) MEAN CORPUSCULAR HGB CONC 30 L g/dL (31-37) RED CELL DISTRIBUTION WIDTH 18.3 H % (11.6-14.8) PLATELET COUNT 190 K/uL (150-400) NEUTROPHIL % 79.0 H % (50-75) LYMPH % 14.7 L % (25-40) MONO % 5.5 % (3-14) EOSINOPHIL % 0.5 % (0-4) BASOPHIL % 0.3 % (0-2) [id number]: (SAURAV: 08/21/2016 22:20) ( [facility] 08/21/2016 22:46) Final results Test Result Flag Units (Reference) D-DIMER QUANTITATIVE 1.85 H ug/mLFEU (0.27-0.52) The primary value of this quantitative assay relates toits negative predictive value (i.e. exclusion) of pulmonaryembolism/deep vein thrombosis/DIC.Elevated levels of d-dimer may also occur with:, age, cancer, inflammation, liver disease,post-op, infection, hematoma, coronary disease, peripheralarteriopathy, bleeding disorders and thrombolytic treatment.Results should be correlated with other clinical andradiological data.Testing Methodology: Latex Immunoassay BNP: (SAURAV: 08/21/2016 22:20) ( [facility] 08/21/2016 22:59) Final results Test Result Flag Units (Reference) B-TYPE NATRIURETIC PEPTIDE 502 H pg/ml (5-100) CMP: (SAURAV: 08/21/2016 22:20) ( MsgRcvd 08/21/2016 22:59) Final results Test Result Flag Units (Reference) GLUCOSE 119 H mg/dL (70-110) BUN 30 H mg/dL (7-18) CREATININE 1.4 H mg/dL (0.6-1.3) Estimated GFR 38.86 mL/min Estimated GFR- 47.10 mL/min Note: Persistent reduction over 3 months in eGFR<60 mL/min/1.73 m2 defines CKD. Patients with eGFR values>=60 mL/min/1.73 m2 may also have CKD if evidence ofpersistent proteinuria. Additional information may be foundat www.kidney.org. SODIUM 145 mmol/L (136-145) POTASSIUM 4.3 mmol/L (3.5-5.1) CHLORIDE 102 mmol/L (98-107) CARBON DIOXIDE 45 *H mmol/L (21-32) CALCIUM 8.4 L mg/dL (8.5-10.1) TOTAL PROTEIN 7.3 g/dL (6.4-8.2) ALBUMIN 3.2 L g/dL (3.3-5.0) BILIRUBIN, TOTAL 1.1 H mg/dL (0.0-1.0) ALKALINE PHOSPHATASE 101 U/L (46-116) AST (SGOT) 22 U/L (15-37) ALT (SGPT) 26 U/L (12-78) ABG: (SAURAV: 08/21/2016 23:29) ( MsgRcvd 08/21/2016 23:52) Final results Test Result Flag Units (Reference) FIO2 40 % (20-101) ABG MODE OF DELIVERY NC MODIFIED LINN TEST POSITIVE? NO LITERS PER MIN. 5 L/MIN (0-20) ARTERIAL BLOOD GAS SITE LR ARTERIAL BLOOD GAS pH 7.24 *L (7.35-7.45) ABG PCO2 106.0 *H mmHg (35-45) ABG PO2 64.0 mmHg (60.0-80.0) ABG BASE EXCESS 15.2 *H mmol/L (-6.0--6.0) ABG HCO3 44.9 *H mmol/L (20.0-26.0) ABG TCO2 48.2 *H mmol/L (24.0-30.0) ABG EzCvY7f 104.7 H mmHg (7.0-14.0) *NOTE: Normal rangeis based on aFIO2 of 21% ABG SAT O2 89.9 L % (95.1-100.0) ABG TOTAL HEMOGLOBIN 12.4 g/dL (12.0-16.0) ABG O2 HEMOGLOBIN 87.7 L % (95.0-100.0) ABG CARBOXYHEMOGLOBIN 2.7 H % (0.5-1.5) ABG METHEMOGLOBIN -0.2 L % (0.4-1.5) ABG RHEMOGLOBIN 9.8 % COMMENTS 4LNC . PROGRESS AND PROCEDURES PROCEDURES (ABG L radial artery). Critical care performed (120 minutes). Time includes: direct patient care, patient reassessment, coordination of patient care, interpretation of data (laboratory data, pulse oximetry, arterial blood gases and chest xrays), review of patient's medical records, medical consultation, family consultation regarding treatment decisions and documentation of patient care. The patient required critical care due to the acute impairment of vital organ systems (respiratory) and a high probability of life threatening deterioration. Multiple emergent interventions were required to prevent life threatening deterioration. Discussed case with on-call health care provider, (call returned 03:16 Dr. Brewer Sports Management Intern at [facility] and recommended ER to ER transfer and will dispo her there. Spoke w/ ED MD, due to pCO2 being so high, she needs an ICU bed and they now no longer have one available.). Reviewed test results and need for additional work-up. Health care provider will see patient in ED. Discussed case with on-call health care provider, (call returned 04:45 Dr. Hendricks Sports Management Intern at [facility]. Due to ABG he would not accept pt unless she was intubated for transfer as immenent deterioration would likely occur..). Reviewed test results and need for additional work-up. Consult obtained from tray room worker. call returned 07:41 Dr. Barnes. Will accept pt. Disposition: Benefits, risks and alternatives to transfer explained to patient and family. Transferred to [facility]. CLINICAL IMPRESSION Bacterial and lobar pneumonia with hypoxemia. Empiric antibiotics given in the ED. Acute congestive heart failure. Acute exacerbation of COPD. Acute urinary tract infection with cystitis. Hypoxia. (Electronically signed by Cj Cole Dr. 08/24/2016 8:46) Addenda for BARBRA ESCOBAR VisitID: [id number] Date: 08/21/2016 08/23/2016 14:42 preliminary result received for urine positive for gram negative rods. Reviewed by Ton Salazar PA-C. Results called to RENETTA Drummond at [facility] radha ([address] [place] [address], critical care). Results also faxed to unit (Electronically signed by Brock Shin R.N. - 08/23/2016 14:42)
--- NOTE | 2016-08-24 08:46 | ED MAR SUMMARY ---
..... Medication Administration Record [facility] [address] [place] [address] Patient: BARBRA ESCOBAR Visit ID: [id number] 76y, F Weight: 136.0 kg Height/Length: 68 in BMI: 45.6 ALLERGIES: Morphine and Related Given 22:28 08/21/2016 Bruna RMargaN. Medication Administered: PREDNISONE [PO], Dose: 40 mg PO. Medication Ordered: Prednisone PO 40 mg (NOW). Given 23:43 08/21/2016 Bruna R.N. Medication Administered: NITROGLYCERIN PASTE [TOPICAL], Dose: 1 in. Topical. Medication Ordered: NitroGLYCERIN Paste Topical 1 in. (NOW, to ). Given 00:06 08/22/2016 Bonny McfarlandN. Medication Administered: LASIX [IVP], Dose: 40 mg IVP over 3 minute(s), Site: #1 left AC. Medication Ordered: Lasix IV 40 mg (NOW). Given 00:26 08/22/2016 Bruna R.N. Medication Administered: LOVENOX [SUBCUTANEOUS] (ENOXAPARIN SODIUM), Dose: 150 mg Subcutaneous. Medication Ordered: Lovenox Subcut 150 mg (HIGH ALERT MEDICATION, NOW). Start 00:37 08/22/2016 Claudia Mcfarland., Stop 01:07 08/22/2016 Bruna R.N. Medication Administered: CEFTRIAXONE [IVPB], Dose: 1 gm IVPB over 30 minute(s), Rate: 1 gm/hr, Dispensed: 100 mL bag, Site: #1 left AC. Medication Ordered: Ceftriaxone IV 1 gm/50mL (NOW). Start 01:08 08/22/2016 Bruna RMargaN., Stop 02:34 08/22/2016 Bruna R.N. Medication Administered: LEVAQUIN [IVPB] (LEVOFLOXACIN), Dose: 750 mg IVPB over 1.5 hour(s), Rate: 750 mg/hr, Site: #1 left AC. Medication Ordered: Levaquin IV 750 mg/150 mL (NOW).
--- NOTE | 2016-08-24 08:46 | ED DISCHARGE INSTRUCTIONS ---
Patient: BARBRA ESCOBAR General Instructions [facility] VisitID: [id number] [address] [place] [address] 76y, F Registration Date/Time: 08/21/2016 Bacterial and lobar pneumonia with hypoxemia. Empiric antibiotics given in the ED. Acute congestive heart failure. Acute exacerbation of COPD. Acute urinary tract infection with cystitis. Hypoxia. (Electronically signed by Cj Cole Dr. 08/24/2016 8:46)
--- NOTE | 2016-08-24 08:46 | ED MED RECONCILIATION SUMMARY ---
Patient: BARBRA ESCOBAR Medication Reconciliation Report [facility] VisitID: [id number] [address] [place] [address] 76y, F Registration Date/Time: 08/21/2016 Weight: 136.0 kg Height/Length: 68 in. BMI: 45.6 ALLERGIES: Morphine and Related The patient's Home Medications are listed below: THE FOLLOWING MEDICATIONS NEED TO BE RECONCILED: Allopurinol Oral 300 mg, daily Aspirin Oral Atorvastatin Calcium Oral 40 mg, daily Furosemide Oral 40 mg, daily Isosorbide Dinitrate Oral (30 mg), bid Levothyroxine Sodium Oral (50 mcg), daily Metoprolol Tartrate Oral 25 mg Oxycodone-Acetaminophen Oral (7.5-325 mg) 2 tablets, 2x a day Pantoprazole Sodium Oral 40 mg, daily The source(s) of the original Home Medication information: Not obtained. The following Medications were given to the patient in the Emergency Department: Prednisone [PO] PO 40 mg, administered: 08/21/2016 10:28:00 PM NITROGLYCERIN PASTE [TOPICAL] Topical 1 in., administered: 08/21/2016 11:43:00 PM Lasix [IVP] IVP 40 mg, administered: 08/22/2016 12:06:00 AM Lovenox [Subcutaneous] Subcutaneous 150 mg, administered: 08/22/2016 12:26:00 AM Ceftriaxone [IVPB] IVPB bolus 0, then 1 gm 1 gm/hr, administered: 08/22/2016 12:37:00 AM Levaquin [IVPB] IVPB bolus 0, then 750 mg 750 mg/hr, administered: 08/22/2016 1:08:00 AM The following Medications were prescribed to the patient: None.
--- NOTE | 2016-08-24 08:46 | ED MED RECONCILIATION SUMMARY ---
Patient: BARBRA ESCOBAR Medication Reconciliation Report [facility] VisitID: [id number] [address] [place] [address] 76y, F Registration Date/Time: 08/21/2016 Weight: 136.0 kg Height/Length: 68 in. BMI: 45.6 ALLERGIES: Morphine and Related The patient's Home Medications are listed below: THE FOLLOWING MEDICATIONS NEED TO BE RECONCILED: Allopurinol Oral 300 mg, daily Aspirin Oral Atorvastatin Calcium Oral 40 mg, daily Furosemide Oral 40 mg, daily Isosorbide Dinitrate Oral (30 mg), bid Levothyroxine Sodium Oral (50 mcg), daily Metoprolol Tartrate Oral 25 mg Oxycodone-Acetaminophen Oral (7.5-325 mg) 2 tablets, 2x a day Pantoprazole Sodium Oral 40 mg, daily The source(s) of the original Home Medication information: Not obtained. The following Medications were given to the patient in the Emergency Department: Prednisone [PO] PO 40 mg, administered: 08/21/2016 10:28:00 PM NITROGLYCERIN PASTE [TOPICAL] Topical 1 in., administered: 08/21/2016 11:43:00 PM Lasix [IVP] IVP 40 mg, administered: 08/22/2016 12:06:00 AM Lovenox [Subcutaneous] Subcutaneous 150 mg, administered: 08/22/2016 12:26:00 AM Ceftriaxone [IVPB] IVPB bolus 0, then 1 gm 1 gm/hr, administered: 08/22/2016 12:37:00 AM Levaquin [IVPB] IVPB bolus 0, then 750 mg 750 mg/hr, administered: 08/22/2016 1:08:00 AM The following Medications were prescribed to the patient: None.
--- NOTE | 2016-08-24 08:46 | ED DISCHARGE INSTRUCTIONS ---
Patient: BARBRA ESCOBAR General Instructions [facility] VisitID: [id number] [address] [place] [address] 76y, F Registration Date/Time: 08/21/2016 Bacterial and lobar pneumonia with hypoxemia. Empiric antibiotics given in the ED. Acute congestive heart failure. Acute exacerbation of COPD. Acute urinary tract infection with cystitis. Hypoxia. (Electronically signed by Cj Cole Dr. 08/24/2016 8:46)
--- NOTE | 2016-08-24 08:46 | ED MAR SUMMARY ---
..... Medication Administration Record [facility] [address] [place] [address] Patient: BARBRA ESCOBAR Visit ID: [id number] 76y, F Weight: 136.0 kg Height/Length: 68 in BMI: 45.6 ALLERGIES: Morphine and Related Given 22:28 08/21/2016 Bruna RMargaN. Medication Administered: PREDNISONE [PO], Dose: 40 mg PO. Medication Ordered: Prednisone PO 40 mg (NOW). Given 23:43 08/21/2016 Bruna R.N. Medication Administered: NITROGLYCERIN PASTE [TOPICAL], Dose: 1 in. Topical. Medication Ordered: NitroGLYCERIN Paste Topical 1 in. (NOW, to ). Given 00:06 08/22/2016 Bonny McfarlandN. Medication Administered: LASIX [IVP], Dose: 40 mg IVP over 3 minute(s), Site: #1 left AC. Medication Ordered: Lasix IV 40 mg (NOW). Given 00:26 08/22/2016 Bruna R.N. Medication Administered: LOVENOX [SUBCUTANEOUS] (ENOXAPARIN SODIUM), Dose: 150 mg Subcutaneous. Medication Ordered: Lovenox Subcut 150 mg (HIGH ALERT MEDICATION, NOW). Start 00:37 08/22/2016 Claudia Mcfarland., Stop 01:07 08/22/2016 Bruna R.N. Medication Administered: CEFTRIAXONE [IVPB], Dose: 1 gm IVPB over 30 minute(s), Rate: 1 gm/hr, Dispensed: 100 mL bag, Site: #1 left AC. Medication Ordered: Ceftriaxone IV 1 gm/50mL (NOW). Start 01:08 08/22/2016 Bruna RMargaN., Stop 02:34 08/22/2016 Bruna R.N. Medication Administered: LEVAQUIN [IVPB] (LEVOFLOXACIN), Dose: 750 mg IVPB over 1.5 hour(s), Rate: 750 mg/hr, Site: #1 left AC. Medication Ordered: Levaquin IV 750 mg/150 mL (NOW).
== END 2016-08-22 08:50 | disposition short-term general hospital (02) ==
LOC: ED SRH 22:04
DX: J15.9 Unspecified bacterial pneumonia (principal); R09.02 Hypoxemia; I50.9 Heart failure, unspecified; J44.1 Chronic obstructive pulmonary disease with (acute) exacerbation; N30.90 Cystitis, unspecified without hematuria; I10 Essential (primary) hypertension; Z79.899 Other long term (current) drug therapy; Z79.82 Long term (current) use of aspirin; Z88.5 Allergy status to narcotic agent